=== PATIENT | male | born 1995 | race Caucasian/White ===

== ENCOUNTER 2020-04-21 | Emergency (ER) | payer OTHER, SELFPAY ==
--- NOTE | ~2020-04-21 | CT_ITS ---
EXAMINATION: CT brain wo con EXAM DATE: 04/21/2020 00:47 INDICATION: Dizziness. TECHNIQUE: Spiral CT of the head was performed without contrast. Axial, coronal and sagittal images were reviewed. The dose-length product (DLP) for this examination was 605.33 mGy-cm. The exposure w as tailored according to patient size, and iterative reconstruction (ASIR) was used as additional dos e reduction technique. There is no prior study for comparison. FINDINGS: There is no acute intraparenchymal hemorrhage. No evidence of intraparenchymal brain mass lesion. No evidence of acute infarction. There is no mass effect or midline shift. The ventricles are normal in size. There are no extra-axial collections. There are no acute calvarial fractures. T he orbits are unremarkable. Soft tissue is unremarkable. The visualized sinuses and mastoid air shlomo ls are well aerated. IMPRESSION: 1. Unremarkable head CT examination. Reviewed, dictated and finalized at location D. SPORTATION SUPERVISOR
--- NOTE | ~2020-04-21 | XR_ITS ---
EXAMINATION: XR chest 2V DATE: 04/21/2020 00:52 INDICATION: Dizziness. Possible carbon monoxide poisoning. TECHNIQUE: PA and lateral views of the chest were obtained. COMPARISON: None FINDINGS: The lungs are clear with no focal airspace opacities, pulmonary edema, pleural effusion or pneumothor ax. The cardiomediastinal silhouette is normal. Mild thoracic levocurvature. IMPRESSION: 1. No acute cardiopulmonary disease. Reviewed, dictated and finalized at location A. GATION TAX ASSESSOR COLLECTOR
[2020-04-21 00:05] VITALS: BP 121/74; PULSE 59; RESP 17; TEMP 36.5; O2SAT 98
--- NOTE | 2020-04-21 00:14 | ECG_ITS ---
Measurements Intervals [place] Rate: 54 P: 14 TX: 127 QRS: 47 QRSD: 112 T: -5 QT: 388 QTc: 369 Interpretive Statements SINUS BRADYCARDIA INTRAVENTRICULAR CONDUCTION DELAY BORDERLINE ST-T WAVE ABNORMALITY- INFERIOR LEADS BORDERLINE ECG Electronically Signed On 04-21-2020 7:28:42 VICE PRESIDENT OF OPERATIONS by Chris Carlisle D.O.
--- NOTE | 2020-04-21 00:26 | ED.GENADULT ---
HPI - General Adult General Chief complaint: Unspecified Stated complaint: carbon monoxide poisoning Time Seen by Provider: 04/21/20 00:13 Source: patient Mode of arrival: ambulatory Limitations: no limitations History of Present Illness HPI narrative: This is a 24 year old male that presents to the ER for lightheadedness x 2 weeks. Reports an episode of near syncope tonight which prompted him to be seen. Reports lightheadedness is worse when he stands up and when he lies down. Denies fever, cough, chest pain, shortness of breath, or vomiting. Related Data Allergies Allergy/AdvReac Type Severity Reaction Status Date / Time amoxicillin Allergy Unknown Verified 04/21/20 00:04 Penicillins Allergy Unknown Verified 04/21/20 00:04 Review of Systems Review of Systems: Narrative: CONSTITUTIONAL: Denies fever EYES: Denies visual changes CARDIOVASCULAR: Denies chest pain or edema. RESPIRATORY: Denies cough or dyspnea. GASTROINTESTINAL: Denies vomiting NEUROLOGIC: Denies headache, numbness, or weakness. All systems reviewed & are unremarkable except as noted in HPI and below PMFSH Past Medical History Medical History (Updated 04/21/20 @ 01:42 by Michelle Estrada PA-C) No active medical problems Social History Social History (Updated 04/21/20 @ 00:28 by Michelle Estrada PA-C) Smoking status: Never smoker Gender identity (if verbalized by the patient): Male Exam Narrative: Exam Narrative: GENERAL: Well-appearing, well-nourished, and in no acute distress. HEAD: Normocephalic, atraumatic. EYES: PERRLA and EOMI. ENT: Nares clear, no rhinorrhea or epistaxis. Mucous membranes moist. Oropharynx without tonsillar hypertrophy exudate or other lesions. Bilateral TMs pearly walsh non-bulging NECK: Supple. No adenopathy or masses. CHEST: Clear to auscultation. No respiratory distress. No wheezes rales or rhonchi HEART: Regular rate and rhythm. No murmur heard. Normal peripheral pulses. ABDOMEN: Soft, nontender, nondistended, normal active bowel sounds. EXTREMITIES: Normal range of motion. No edema. Strength equal in bilateral upper and lower extremities (5/5) SKIN: Warm, dry, no rash. NEURO: No focal deficits. Alert and oriented x3. Cranial nerves II through XII grossly intact. Normal [id number] PSYCH: Normal mood and affect Course Vital Signs Vital signs: Vital Signs Temperature 97.7 F 04/21/20 00:05 Pulse Rate 59 L 04/21/20 00:05 Respiratory Rate 17 04/21/20 00:05 Blood Pressure 121/74 04/21/20 00:05 Pulse Oximetry 98 04/21/20 00:05 Temperature 97.7 F 04/21/20 00:05 Pulse Rate 78 04/21/20 01:31 Respiratory Rate 19 04/21/20 00:39 Blood Pressure 135/97 H 04/21/20 01:31 Pulse Oximetry 97 04/21/20 00:39 Medical Decision Making MDM Narrative Medical decision making narrative: Patient presents emergency department for intermittent dizziness over the last couple of weeks. He is afebrile and nontoxic-appearing. He is neurologically intact. Patient is not orthostatic. CBC and metabolic panel without concerning findings. Chest x-ray is without acute changes. CT scan of the brain is without acute findings. EKG without concerning changes. PERC criteria negative. Patient without any current dizziness or lightheadedness. He was updated on case findings. He is stable and felt appropriate for further outpatient evaluation. He was given warnings to return to the ER Vital Signs Vital Signs: Vital Signs Temperature 97.7 F 04/21/20 00:05 Pulse Rate 59 L 04/21/20 00:05 Respiratory Rate 17 04/21/20 00:05 Blood Pressure 121/74 04/21/20 00:05 Pulse Oximetry 98 04/21/20 00:05 Temperature 97.7 F 04/21/20 00:05 Pulse Rate 78 04/21/20 01:31 Respiratory Rate 19 04/21/20 00:39 Blood Pressure 135/97 H 04/21/20 01:31 Pulse Oximetry 97 04/21/20 00:39 Lab Data Lab results reviewed: Yes I reviewed the patient's lab results. Result diagrams: 04/21/20 01:00
[2020-04-21 00:36] LABS: Alveolar/Arterial O2 Gradient 13.3 mmHg; Base Excess ABG -0.8 mEq/l (+/-2.0); Carboxyhemoglobin 1.1 % THb (0-2.0); Fractional Inspired Oxygen 21 %; HCO3 ABG 23.7 mEq/l (22.0-26.0); Methemoglobin ABG 0.5 %THb (0-1.5); Oxygen Content ABG 21.5 %vol (16.0-22.0); Oxygen Saturation ABG 96.9 % (95.0-100.0); Oxyhemoglobin 95.6 % THb (90.0-100.0); PO2 ABG 89.7 mmHg (80.0-100.0); PO2 FiO2 Ratio Arterial Blood 4.27 %; Reduced Hemoglobin 2.8 %THb (0-5.0); pH ABG 7.402 (7.350-7.450)
[2020-04-21 00:37] LABS: Device ROOM AIR; Modified Allen's Test Pass; Site Drawn RIGHT RADIAL
[2020-04-21 00:39] VITALS: BP 130/90; PULSE 57; RESP 19; O2SAT 97
[2020-04-21 01:22] VITALS: BP 126/77; PULSE 60
[2020-04-21 01:25] VITALS: BP 128/79; PULSE 67
[2020-04-21 01:25] LABS: Basophils Percent Auto 0.3 % (0.2-1.2); Eosinophils Absolute Auto 0.5 K/mm3 (0-0.3); Hematocrit 46.4 % (42.0-52.0); Hemoglobin 15.9 g/dL (14.0-18.0); Immature Granulocyte Absolute 0.02 K/mm3 (0.00-0.031); Immature Granulocyte Percent A 0.2 % (0-0.5); Lymphocytes Absolute Auto 2.81 K/mm3 (0.9-3.2); Lymphocytes Percent Auto 31.9 % (18.3-44.2); Mean Corpuscular HGB Conc 34.3 g/dl (32-36); Mean Corpuscular Hemoglobin 28.4 pg (26-34); Mean Corpuscular Volume 82.9 fl (80-100); Mean Platelet Volume 10.9 fl (7.4-10.4); Monocytes Absolute Auto 0.8 K/mm3 (0.1-0.6); Monocytes Percent Auto 9.1 % (2.6-8.5); Neutrophils Absolute Auto 4.6 K/mm3 (1.3-6.7); Neutrophils Percent Auto 52.5 % (45.5-73.1); Platelet Count Result 220 k/mm3 (150-375); Red Cell Distribution Width 12.4 % (11.5-14.5); White Blood Count 8.8 K/mm3 (4.5-10.0)
[2020-04-21 01:31] VITALS: BP 135/97; PULSE 78
[2020-04-21 01:37] LABS: Alanine Aminotransferase 75 U/L (4-50); Albumin Level 4.3 g/dL (3.5-5.1); Alkaline Phosphatase 58 U/L (38-126); Anion Gap 7 mmol/L (8-16); Aspartate Amino Transferase 40 U/L (17-59); Bilirubin,Total 0.5 mg/dL (0.2-1.3); Blood Urea Nitrogen 14 mg/dL (9-20); Calcium 9.6 mg/dL (8.4-10.2); Carbon Dioxide 31 mmol/L (22-30); Chloride 101 mmol/L (98-107); Estimated CRCL calculation 124 ml/min; Estimated Glomerular Filt Rate > 60; Glucose 96 mg/dL (75-110); Potassium 3.7 mmol/L (3.4-5.0); Sodium 139 mmol/L (137-145)
[2020-04-21 02:10] VITALS: BP 113/75; PULSE 80; RESP 18; O2SAT 98
== END 2020-04-21 02:13 | disposition home or self-care (01) ==
PROVIDERS: Physician Assistant; Emergency Provider Emergency Medicine
DX: R42 Dizziness and giddiness (principal)
CPT/HCPCS: 36415; 36600; 70450; 71046; 80053; 82375; 82805; 83050; 85025; 93005; 99284